=== PATIENT | female | born 1985 | race Caucasian/White ===

== ENCOUNTER 2016-09-29 13:47 | Inpatient (IN) | payer BC ==
[2016-09-29 17:44] LABS: Hematocrit 36 % (35-47); Hemoglobin 11.9 g/dl (12.0-16.0); Mean Corpuscular HGB Conc 33 g/dl (31-36); Mean Corpuscular Hemoglobin 27 pg (27-31); Mean Corpuscular Volume 83 fL (80-97); Mean Platelet Volume 8 um3 (7.4-10.4); Red Blood Count 4.38 10^6/ul (4.0-5.4); Red Cell Distribution Width 15 % (10.5-15); White Blood Count 21.6 10^3/ul (3.5-10.8)
[2016-09-29] MEDS ORDERED: OBEPIDURAL* 250 ML ONE (17:46)
[2016-09-29] MEDS ORDERED: fentaNYL* 50 MCG/ML 2 ML VIAL (100 MCG VIAL) ONE (18:30)
[2016-09-29] MEDS ORDERED: fentaNYL* 50 MCG/ML 2 ML VIAL (100 MCG VIAL) IV ONE (18:31)
[2016-09-29] MEDS ORDERED: Phenylephrine IV* 40 MCG/ML 10 ML SYRINGE IV PUSH PRN ×2 (19:11)
[2016-09-29] MEDS ORDERED: Sodium Citrate/Citric Acid* 15 ML UDC PO PRN (19:11)
[2016-09-29] MEDS ORDERED: EPHEDrine (Pressors)* 50 MG/ML VIAL IV PUSH PRN ×2 (19:11)
[2016-09-29] MEDS ORDERED: Famotidine TAB* 20 MG PO PRN (19:11)
[2016-09-29] MEDS ORDERED: OBEPIDURAL* 250 ML EPIDURAL SCH (20:00)
[2016-09-29] MEDS ORDERED: Oxytocin in LR* 20 UNITS/1,000 ML BAG IVPB ONE (21:01)
[2016-09-29] MEDS ORDERED: Oxytocin in LR* 20 UNITS/1,000 ML BAG IVPB SCH (22:00)
[2016-09-29] MEDS ORDERED: ceFOXitin 2 GM IVPREMIX* 2 GM/50 ML BAG ONE (23:44)
[2016-09-30] MEDS ORDERED: fentaNYL* 50 MCG/ML 2 ML VIAL (100 MCG VIAL) ONE (00:26)
[2016-09-30] MEDS ORDERED: OXYTOCIN* 10 UNITS/ML 1 ML VIAL ONE (00:56)
[2016-09-30] MEDS ORDERED: Sodium Bicarbonate 8.4% IV* 50 ML VIAL ONE (00:56)
[2016-09-30] MEDS ORDERED: Lidocaine 2% EPI 1:200000 MPF* 20 ML VIAL ONE (00:56)
[2016-09-30] MEDS ORDERED: Carboprost Tromethamine* 250 MCG INJ ONE (01:00)
[2016-09-30] MEDS ORDERED: Morphine PF AMP (0.5MG/ML)* 5 MG/10 ML AMP ONE (01:04)
[2016-09-30] MEDS ORDERED: Acetaminophen TAB* 325 MG PO PRN (01:09)
[2016-09-30] MEDS ORDERED: Naloxone* 0.4 MG/ML 1 ML VIAL IV PRN (01:09)
[2016-09-30] MEDS ORDERED: oxyCODONE/Acetamin 5/325 MG* TAB PO PRN ×3 (01:09→17:09)
[2016-09-30] MEDS ORDERED: Nalbuphine* 20 MG/ML 1 ML VIAL IV PRN (01:09)
[2016-09-30] MEDS ORDERED: DiMENhydriNATE IV* 50 MG/ML VIAL IV PUSH PRN (01:09)
[2016-09-30] MEDS ORDERED: Ondansetron INJ* 2 MG/ML VIAL ONE (01:40)
[2016-09-30] MEDS ORDERED: Zolpidem TAB* 5 MG PO PRN (01:41)
[2016-09-30] MEDS ORDERED: Witch Hazel PAD* JAR TOPICAL PRN (01:41)
[2016-09-30] MEDS ORDERED: Glycerin ADULT SUPP PR PRN (01:41)
[2016-09-30] MEDS ORDERED: Carboprost Tromethamine* 250 MCG INJ IM ONE (01:41)
[2016-09-30] MEDS ORDERED: Dibucaine 1% 28.35 GM TUBE PR PRN (01:41)
[2016-09-30] MEDS ORDERED: Oxytocin in LR* 20 UNITS/1,000 ML BAG IVPB SCH (02:00)
--- NOTE | 2016-09-30 03:41 | OP ---
OPERATIVE REPORT: DATE OF OPERATION: 09/30/16 DATE OF : 85 SURGEON: Gonsalo Santiago MD [employer] PRINCIPAL: Lesia Matute CM ANESTHESIA: Epidural. PRE-OP DIAGNOSIS: Arrest of dilation. POST-OP DIAGNOSES: Arrest of dilation plus macrosomia and omental adhesions. OPERATIVE PROCEDURE: Low-transverse section and lysis of adhesions. COMPLICATIONS: None. ESTIMATED BLOOD LOSS: 600 cc. FINDING: This is a 31-year-old gravid 1 who presented in labor. She progressed a 5 cm and then arrested despite epidural and Pitocin augmentation. At the time of , she had a viable male, Apgars were 9 and 9, weight was 9 pounds and 8 ounces. She had omental adhesions to the anterior peritoneum. Normal-appearing fallopian tubes and ovaries. PROCEDURE: The patient identified, procedure identified as a low transverse section. The patient was taken to the operating room, prepped and draped in the usual fashion in the left lateral recumbent position under epidural anesthesia. A Pfannenstiel incision was made through the abdomen and carried down through fat, fascia, and peritoneum. A transverse incision was made in the lower uterine segment and extended laterally using the blunt dissection. The above was attempted to deliver through the incision because there was resistance. The right side of the rectus muscle was incised and the skin incision was extended somewhat approximately 3 cm. At this point the baby delivered with ease. Cord was doubly clamped and cut. The infant was handed to the waiting pattern setter. Cord blood was obtained. Placenta delivered spontaneously. Uterus was wiped out with a wet lap sponge. Because of the uterine anatomy, 250 mcg of carboprost was given IM along with Pitocin. The uterine incision was then closed using 0 Polysorb in a running fashion. A second layer was used to imbricate the first layer. Good hemostasis was verified. The uterus was placed back in the abdominal cavity. The omental adhesion was lysed using the Bovie along the peritoneal border and the distal ends were inspected for hemostasis. Good hemostasis was verified. The uterus was placed back in the abdominal cavity. Good hemostasis was again verified. The gutters were wiped out with the wet lap sponge. The peritoneum was then closed using 3-0 Polysorb in a running fashion. Good hemostasis achieved in the subrectus layers. The rectus muscle was reapproximated using the 3-0 Polysorb in a [id number] fashion. The fascia was then closed using 0 Polysorb in a running fashion. Good hemostasis was achieved in the subcu. Subcu was not very deep and hence the skin was closed with 4-0 Monocryl in a subcuticular fashion. All sponge and instrument counts were correct. The patient was returned to the recovery room in stable condition. [id number]/[facility] #: [id number] [facility]ITAL[facility]
[2016-09-30] MEDS: Ibuprofen TAB* 600 MG PO PRN ×5 (04:05→23:48)
[2016-09-30] MEDS: Simethicone TAB* 80 MG TAB.CHEW PO SCH ×4 (09:19→20:33)
[2016-09-30] MEDS: Docusate CAP* 100 MG PO SCH ×3 (09:19→20:33)
[2016-09-30] MEDS: Acetaminophen TAB* 325 MG PO PRN (20:33)
[2016-10-01] MEDS: Acetaminophen TAB* 325 MG PO PRN ×3 (04:18→18:43)
[2016-10-01 07:10] LABS: Hematocrit 27 % (35-47); Hemoglobin 8.8 g/dl (12.0-16.0); Mean Corpuscular HGB Conc 33 g/dl (31-36); Mean Corpuscular Hemoglobin 28 pg (27-31); Mean Corpuscular Volume 84 fL (80-97); Mean Platelet Volume 8 um3 (7.4-10.4); Red Blood Count 3.19 10^6/ul (4.0-5.4); Red Cell Distribution Width 15 % (10.5-15); White Blood Count 14.9 10^3/ul (3.5-10.8)
[2016-10-01] MEDS: Docusate CAP* 100 MG PO SCH ×3 (08:55→21:44)
[2016-10-01] MEDS: Ibuprofen TAB* 600 MG PO PRN ×3 (08:56→21:42)
[2016-10-01] MEDS: Ferrous Gluconate TAB* 324 MG TAB PO SCH ×2 (08:56→21:44)
[2016-10-01] MEDS: Simethicone TAB* 80 MG TAB.CHEW PO SCH ×4 (08:56→21:41)
[2016-10-02] MEDS: Acetaminophen TAB* 325 MG PO PRN ×2 (02:42→08:47)
[2016-10-02] MEDS: Ibuprofen TAB* 600 MG PO PRN (04:34)
[2016-10-02 07:57] VITALS: BP 112/87
[2016-10-02] MEDS: Ferrous Gluconate TAB* 324 MG TAB PO SCH (08:44)
[2016-10-02] MEDS: Docusate CAP* 100 MG PO SCH (08:44)
[2016-10-02] MEDS: Simethicone TAB* 80 MG TAB.CHEW PO SCH (08:44)
== END 2016-10-02 13:00 | disposition home or self-care (01) | DRG 540 ==
LOC: MCHOBOUT 13:47 → MCHOB 14:18
PROVIDERS: ADMIT Midwife; ATTEND Obstetrics & Gynecology
PROC: 10907ZC Drainage of Amniotic Fluid, Therapeutic from Products of Conception, Via Natural or Artificial Opening (ICD-10-PCS; 2016-09-30)
PROC: 0JN Subcutaneous Tissue and Fascia, Release (ICD-10-PCS; 2016-09-30)
PROC: 10D00Z1 Extraction of Products of Conception, Low, Open Approach (ICD-10-PCS; principal; 2016-09-30 00:26)
DX: O62.0 Primary inadequate contractions (principal); D64.9 Anemia, unspecified; O66.2 Obstructed labor due to unusually large fetus; O99.89 Other specified diseases and conditions complicating pregnancy, childbirth and the puerperium; O48.0 Post-term pregnancy; O90.81 Anemia of the puerperium; N73.6 Female pelvic peritoneal adhesions (postinfective); Z3A.40 40 weeks gestation of pregnancy; Z37.0 Single live birth
CPT/HCPCS: 36415; 85025; 85027; 86850; 86900; 86901; A9270-GY; J0694; J2405; J2590; J3010

== ENCOUNTER 2017-06-11 19:05 | Emergency (ER) | payer BC ==
[2017-06-11 19:27] VITALS: BP 128/70
[2017-06-11] MEDS ORDERED: NS 0.9% 1000 ML* 1,000 ML IV ONE (19:53)
--- NOTE | 2017-06-14 20:45 | UC ---
Abdominal Pain Female HPI - HPI Summary HPI Summary: 31 YEAR OLD FEMALE WITH A HISTORY OF A RENAL STONE PRESENTS WITH SEVERE ABDOMINAL PAIN I WILL SEND HER TO THE ER. - History of Current Complaint Chief Complaint: UCGU Stated Complaint: ABD PAIN Time Seen by Provider: 06/11/17 19:30 Hx Obtained From: Patient Hx Last Menstrual Period: 05/21 Onset/Duration: Sudden Onset Pain Scale Used: 0-10 Numeric - 10 Location: Diffuse, Discrete At: RLQ Radiates to: Back Allergies/Adverse Reactions: Allergies Allergy/AdvReac Type Severity Reaction Status Date / Time Levofloxacin [From Levaquin] AdvReac Vomiting Verified 06/11/17 19:27 PMH/Surg Hx/FS Hx/Imm Hx - Surgical History Surgical History: Yes Surgery Procedure, Year, and Place: 2002 & 2009 left ureteroscopy, stent insertion, [facility]. [facility] - Social History Alcohol Use: Weekly Alcohol Amount: 2 beers per week Substance Use Type: None Smoking Status (MU): Never Smoked Tobacco Have You Smoked in the Last Year: No - Immunization History Most Recent Influenza Vaccination: 06/2016 Most Recent Tetanus Shot: 06/2016 Most Recent Pneumonia Vaccination: never Review of Systems Constitutional: Negative Skin: Negative Eyes: Negative ENT: Negative Respiratory: Negative Cardiovascular: Negative Gastrointestinal: Abdominal Pain, Nausea Genitourinary: Negative Motor: Negative Neurovascular: Negative Musculoskeletal: Negative Neurological: Negative Psychological: Negative All Other Systems Reviewed And Are Negative: Yes Physical Exam Triage Information Reviewed: Yes Vital Signs: Initial Vital Signs Temp 36.6 C 06/11/17 19:22 Pulse 110 06/11/17 19:22 Resp 22 06/11/17 19:22 BP 128/70 06/11/17 19:22 Pulse Ox 96 06/11/17 19:22 Vital Signs Reviewed: Yes Eye Exam: Normal ENT Exam: Normal Dental Exam: Normal Neck exam: Normal Neck: Positive: 1 Respiratory Exam: Normal Cardiovascular Exam: Normal Abdomen Description: Positive: CVA Tenderness (R), Guarding Musculoskeletal Exam: Normal Neurological Exam: Normal Psychological Exam: Normal Skin Exam: Normal Abd Pain Female Course/Dx - Differential Dx/Diagnosis Provider Diagnoses: SEVERE RIGHT FLANK PAIN. SEVERE RLQ PAIN Discharge - Discharge Plan Condition: Guarded Disposition: [facility] Referrals: Christophe Ascencio MD [Primary Care Provider] -
== END 2017-06-11 19:55 | disposition short-term general hospital (02) ==
LOC: UCEAST 19:05
DX: R10.31 Right lower quadrant pain (principal); M54.5 Low back pain; R11.0 Nausea; Z87.442 Personal history of urinary calculi; Z88.1 Allergy status to other antibiotic agents
CPT/HCPCS: 99213; G0463

== ENCOUNTER 2017-06-11 20:12 | Emergency (ER) | payer BC ==
[2017-06-11] MEDS ORDERED: Ketorolac INJ* 30 MG/ML 1 ML VIAL IV PUSH ONE (20:48)
[2017-06-11] MEDS ORDERED: Ondansetron INJ* 2 MG/ML VIAL IV ONE (20:48)
[2017-06-11 21:43] LABS: Hematocrit 42 % (35-47); Hemoglobin 13.7 g/dl (12.0-16.0); Mean Corpuscular HGB Conc 33 g/dl (31-36); Mean Corpuscular Hemoglobin 28 pg (27-31); Mean Corpuscular Volume 83 fL (80-97); Mean Platelet Volume 8 um3 (7.4-10.4); Red Blood Count 4.98 10^6/ul (4.0-5.4); Red Cell Distribution Width 14 % (10.5-15)
[2017-06-11 21:59] LABS: ALT 11 U/L (7-52); AST 13 U/L (13-39); Albumin 4.2 g/dL (3.2-5.2); Alkaline Phosphatase 68 U/L (34-104); Anion Gap 11 mmol/L (2-11); BUN/Creatinine Ratio 22.6 (8-20); Blood Urea Nitrogen 14 mg/dL (6-24); CO2 Carbon Dioxide 19 mmol/L (22-32); Calcium 8.8 mg/dL (8.6-10.3); Chloride 106 mmol/L (101-111); EGFR African American 144.4 (>60); EGFR Non-African American 112.3 (>60); Globulin 3.1 g/dL (2-4); Glucose 128 mg/dL (70-100); Potassium 3.9 mmol/L (3.5-5.0); Sodium 136 mmol/L (133-145); Total Protein 7.3 g/dL (6.4-8.9)
[2017-06-11 22:20] LABS: Lipase < 10 U/L (11.0-82.0)
--- NOTE | 2017-06-11 23:16 | ED ---
GI/ HPI - HPI Summary HPI Summary: 31F presents with right sided flank and abdominal pain for today. Has history of kidney stones but states that this feels a little different as pain is more intense and more into abdomen. is being followed up by dr barrios for kidney stones. admits to nausea and vomiting. denies any fever. denies any dysuria or hematuria. denies any diarrhea or constipation. no abnormal vaginal discharge. denies any denies any previous abdominal surgeries. is schedule for lithotripsy in jul. - History of Current Complaint Chief Complaint: EDAbdPain Time Seen by Provider: 06/11/17 20:41 Stated Complaint: ABD PAIN Hx Last Menstrual Period: 05/21 Pain Intensity: 8 - Allergy/Home Medications Allergies/Adverse Reactions: Allergies Allergy/AdvReac Type Severity Reaction Status Date / Time Levofloxacin [From Levaquin] AdvReac Vomiting Verified 06/11/17 19:27 PMH/Surg Hx/FS Hx/Imm Hx Endocrine/Hematology History: Denies: Hx Diabetes, Hx Thyroid Disease Cardiovascular History: Denies: Hx Hypertension Respiratory History: Denies: Hx Asthma, Hx Chronic Obstructive Pulmonary Disease (COPD) GI History: Denies: Hx Ulcer History: Reports: Hx Kidney Stones - hx of x3-BILAT, Other Problems/ Disorders - hx of stones Sensory History: Denies: Hx Contacts or Glasses, Hx Hearing Aid Opthamlomology History: Denies: Hx Contacts or Glasses - Surgical History Surgery Procedure, Year, and Place: 2002 & 2009 [place]teroscopy, [place] [facility] [facility] [place] Reactions: No Infectious Disease History: No Infectious Disease History: Denies: Hx Clostridium Difficile, Hx Hepatitis, Hx Human Immunodeficiency Virus (HIV), Hx of Known/Suspected MRSA, Hx Shingles, Hx Tuberculosis, Hx Known/ Suspected VRE, Hx Known/Suspected VRSA, History Other Infectious Disease, Traveled Outside the [place] in Last 30 Days - Family History Known Family History: Positive: Renal Disease - Social History Alcohol Use: Weekly Alcohol Amount: 2 beers per week Substance Use Type: Reports: None Smoking Status (MU): Never Smoked Tobacco Have You Smoked in the Last Year: No Review of Systems Negative: Fever Negative: Chest Pain Negative: Shortness Of Breath Positive: Abdominal Pain, Vomiting, Nausea. Negative: Diarrhea Positive: flank pain. Negative: dysuria All Other Systems Reviewed And Are Negative: Yes Physical Exam Triage Information Reviewed: Yes Vital Signs On Initial Exam: Initial Vitals Temp Pulse Resp BP Pulse Ox 97.8 F 91 17 180/136 97 06/11/17 20:16 06/11/17 20:16 06/11/17 20:16 06/11/17 20:16 06/11/17 20:16 Vital Signs Reviewed: Yes Appearance: Positive: Pain Distress Skin: Positive: Warm, Dry Head/Face: Positive: Normal Head/Face Inspection Eyes: Positive: Normal, EOMI, SARTHAK, Conjunctiva Clear ENT: Positive: Normal ENT inspection, Pharynx normal, TMs normal Respiratory/Lung Sounds: Positive: Clear to Auscultation, Breath Sounds Present Cardiovascular: Positive: Normal, RRR Abdomen Description: Positive: Bruit, CVA Tenderness (R), Other: - moderate tenderness RLQ, no rebound, neg rosvings Bowel Sounds: Positive: Present - [place]ay Coma Scale Coma Scale Total: 15 Diagnostics - Vital Signs Vital Signs Temp Pulse Resp BP Pulse Ox 06/11/17 20:16 97.8 F 91 17 180/136 97 - Laboratory Lab Results: Lab Results 06/11/17 06/11/17 Range/Units 21:33 21:33 WBC 11.0 H (3.5-10.8) 10^3/ul RBC 4.98 (4.0-5.4) 10^6/ul Hgb 13.7 (12.0-16.0) g/dl Hct 42 (35-47) % MCV 83 (80-97) fL MCH 28 (27-31) pg MCHC 33 (31-36) g/dl RDW 14 (10.5-15) % Plt Count 281 (150-450) 10^3/ul MPV 8 (7.4-10.4) um3 Neut % (Auto) 94.1 H (38-83) % Lymph % (Auto) 2.9 L (25-47) % [place] % (Auto) 2.7 (1-9) % Eos % (Auto) 0.1 (0-6) % Baso % (Auto) 0.2 (0-2) % Absolute Neuts (auto) 10.4 H (1.5-7.7) 10^3/ul Absolute Lymphs (auto) 0.3 L (1.0-4.8) 10^3/ul Absolute Monos (auto) 0.3 (0-0.8) 10^3/ul Absolute Eos (auto) 0 (0-0.6) 10^3/ul Absolute Basos (auto) 0 (0-0.2) 10^3/ul Absolute Nucleated RBC 0 10^3/ul Nucleated RBC % 0 Sodium 136 (133-145) mmol/L Potassium 3.9 (3.5-5.0) mmol/L Chloride 106 (101-111) mmol/L Carbon Dioxide 19 L (22-32) mmol/L Anion Gap 11 (2-11) mmol/L BUN 14 (6-24) mg/dL Creatinine 0.62 (0.51-0.95) mg/dL Est GFR ( Amer) 144.4 (>60) Est GFR (Non-Af Amer) 112.3 (>60) BUN/Creatinine Ratio 22.6 H (8-20) Glucose 128 H (70-100) mg/dL Calcium 8.8 (8.6-10.3) mg/dL Total Bilirubin 0.70 (0.2-1.0) mg/dL AST 13 (13-39) U/L ALT 11 (7-52) U/L Alkaline Phosphatase 68 (34-104) U/L C-React Prot High Sens 18.46 mg/L Total Protein 7.3 (6.4-8.9) g/dL Albumin 4.2 (3.2-5.2) g/dL Globulin 3.1 (2-4) g/dL Albumin/Globulin Ratio 1.4 (1-3) Lipase < 10 L (11.0-82.0) U/L Beta HCG, Quant < 0.60 mIU/mL Result Diagrams: 06/11/17 21:33 06/11/17 21:33 Lab Statement: Any lab studies that have been ordered have been reviewed, and results considered in the medical decision making process. - CT abd CT Interpretation: Positive (See Comments) - 2mm bladder stone near left urterovesciular junction, appendix appears grossly normal. CT Interpretation Completed By: Radiologist GIGJaskaran Course/Dx - Course Course Of Treatment: 31F presents with right sided flank and abdominal pain for today. Has history of kidney stones but states that this feels a little different as pain is more intense and more into abdomen. is being followed up by dr barrios for kidney stones. admits to nausea and vomiting. denies any fever. denies any dysuria or hematuria. denies any diarrhea or constipation. no abnormal vaginal discharge. denies any denies any previous abdominal surgeries. on exam CVA tenderness right, tender in RLQ more towards center, neg rovsings. CT abdomen shows stone 2mm stone at left UVJ. this is not were pain really is but wbc only [address] without did not show appendicitis. will treat as just stone with flomax and zofran. patient has percocet. patient understands and agrees with plan. - Diagnoses Differential Diagnoses - Female: Appendicitis, Urinary Tract Infection, Ureteral Calculi Provider Diagnoses: Kidney stone Discharge - Discharge Plan Condition: Good Disposition: HOME Prescriptions: Ondansetron ODT TAB* [Zofran 4 MG Odt TAB*] 4 mg PO Q6H PRN #20 tab.odt PRN Reason: Nausea Tamsulosin CAP* [Flomax CAP*] 0.4 mg PO DAILY #10 cap Patient Education Materials: Kidney Stones (ED) Forms: *Work Release Referrals: Christophe Ascencio MD [Primary Care Provider] - Devin Barrios MD [Medical Doctor] - Additional Instructions: Take ibuprofen every 6 hours and narcotic as needed every 6 hours Take Zofran every 6 hours for nausea as needed Take Flomax daily starting tomorrow, first dose given in ED until stone expelled , make sure stand up slowly Follow up with urology Strain urine until collect stone Return to ED if unable to manage pain at home, develop fever, or any new or worsening symptoms
[2017-06-11] MEDS ORDERED: HYDROmorphone INJ* 1 MG/ML CARPUJECT SYRINGE IV SLOW PU ONE (23:19)
[2017-06-11 23:31] LABS: Urine Bacteria Absent (Absent)
[2017-06-11 23:37] LABS: Urine Bilirubin Negative (Negative); Urine Glucose Negative (Negative); Urine Nitrite Negative (Negative)
[2017-06-12] MEDS ORDERED: Ondansetron ODT TAB* 4 MG PO ONE (00:34)
[2017-06-12] MEDS ORDERED: Tamsulosin CAP* 0.4 MG PO ONE (00:35)
[2017-06-12 00:44] VITALS: BP 124/69
--- NOTE | 2017-06-12 07:42 | RAD ---
CLINICAL HISTORY: Right flank pain, right lower quadrant pain COMPARISON: None TECHNIQUE: Multiple contiguous axial CT scans were obtained of the abdomen and pelvis, without intravenous contrast enhancement. Coronal and sagittal multiplanar reformations are submitted for review. Oral contrast was not administered. FINDINGS: The study is limited by the lack of intravenous contrast. This limits evaluation of the solid organs and vasculature. LUNG BASES: The lung bases are clear. LIVER: The liver is normal in shape, size, contour, and attenuation. BILE DUCTS: There is no intrahepatic or extrahepatic biliary dilatation. GALLBLADDER: The gallbladder is normal, without pericholecystic inflammatory change. PANCREAS: The pancreas is normal, without mass or ductal dilatation. SPLEEN: Normal in size and appearance. UPPER GI TRACT: Evaluation of the gastrointestinal tract is limited by incomplete gastric distention. The upper GI tract is unremarkable. SMALL BOWEL AND MESENTERY: The small bowel is normal in contour, course, and caliber. There is no obstruction or dilatation. COLON: The colon is normal in contour, course, caliber. There is no pericolonic inflammatory change. There is a tubular, vermiform, hollow viscus that is blind ending, and originates from the cecum, consistent with a normal appendix. There is no periappendiceal inflammatory change. This is best seen on images 108-120. ADRENALS: Normal bilaterally. KIDNEYS: There are bilateral renal calyceal stones, measuring up to 0.6 cm on the right. There is a 0.2 cm left UVJ stone. There is no hydronephrosis. BLADDER: As noted above, there is a 0.2 cm left UVJ stone. PELVIC ORGANS: The uterus and adnexa are grossly normal for technique. AORTA: The aorta is normal. IVC: Unremarkable LYMPH NODES: There is no lymphadenopathy by size criteria. ABDOMINAL WALL: There is a small fat-containing umbilical hernia. BONES AND SOFT TISSUES: Unremarkable OTHER: None IMPRESSION: 1. BILATERAL NEPHROLITHIASIS, INCLUDING A 0.2 CM LEFT UVJ STONE. THERE IS NO HYDRONEPHROSIS. 2. NORMAL APPENDIX.
== END 2017-06-12 01:23 | disposition home or self-care (01) ==
LOC: ED 20:12
DX: N20.0 Calculus of kidney (principal); R11.2 Nausea with vomiting, unspecified; R10.84 Generalized abdominal pain
CPT/HCPCS: 36415; 74176; 80053; 81003; 81015; 83690; 84702; 85025; 86141; 96374; 96375; 99283; A9270-GY; J1170; J1885; J2405

== ENCOUNTER 2018-10-06 05:54 | Inpatient (IN) | payer BC ==
[2018-10-06] MEDS ORDERED: Lidocaine 1%* 5 ML VIAL ONE ×2 (06:02→07:57)
[2018-10-06] MEDS ORDERED: ceFOXitin 2 GM IVPREMIX* 2 GM/50 ML BAG ONE (06:03)
[2018-10-06] MEDS ORDERED: Morphine PF AMP (0.5MG/ML)* 5 MG/10 ML AMP ONE (07:54)
[2018-10-06] MEDS ORDERED: Sodium Citrate/Citric Acid* 15 ML UDC ONE (07:59)
[2018-10-06] MEDS ORDERED: Naloxone* 0.4 MG/ML 1 ML VIAL IV PRN ×2 (08:42→08:43)
[2018-10-06] MEDS ORDERED: fentaNYL* 50 MCG/ML 2 ML VIAL (100 MCG VIAL) IV PRN (08:42)
[2018-10-06] MEDS ORDERED: Ondansetron INJ* 2 MG/ML VIAL IV PRN ×2 (08:42→08:43)
[2018-10-06] MEDS ORDERED: oxyCODONE/Acetamin 5/325 MG* TAB PO PRN (08:43)
[2018-10-06] MEDS ORDERED: DiMENhydriNATE IV* 50 MG/ML VIAL IV PUSH PRN (08:43)
[2018-10-06] MEDS ORDERED: diPHENhydraMINE IV* 50 MG/ML 1 ml VIAL (BENADRYL) IV PRN (08:43)
[2018-10-06] MEDS ORDERED: Scopolamine 1.5 mg* PATCH TRANSDERM PRN (08:43)
[2018-10-06] MEDS ORDERED: OXYTOCIN* 10 UNITS/ML 1 ML VIAL ONE (08:56)
[2018-10-06] MEDS ORDERED: Ketorolac INJ* 30 MG/ML 1 ML VIAL ONE (08:56)
[2018-10-06] MEDS ORDERED: EPHEDrine (Pressors)* 50 MG/ML VIAL ONE (08:56)
[2018-10-06] MEDS ORDERED: Phenylephrine INJ* 10 MG/ML 1 ML VIAL (10 MG) ONE (09:22)
[2018-10-06] MEDS ORDERED: Glycerin ADULT SUPP PR PRN (12:18)
[2018-10-06] MEDS ORDERED: Witch Hazel PAD* JAR TOPICAL PRN (12:18)
[2018-10-06] MEDS ORDERED: Ibuprofen TAB* 600 MG PO PRN (12:18)
[2018-10-06] MEDS ORDERED: Acetaminophen TAB* 325 MG PO PRN (12:18)
[2018-10-06] MEDS ORDERED: Dibucaine 1% 28.35 GM TUBE PR PRN (12:18)
[2018-10-06] MEDS ORDERED: Lactated Ringers 1000 ML Bag* 1,000 ML IV SCH (13:00)
[2018-10-06] MEDS ORDERED: Oxytocin in LR* 20 UNITS/1,000 ML BAG IVPB SCH (13:00)
[2018-10-06] MEDS: Docusate CAP* 100 MG PO SCH ×2 (15:38→20:01)
[2018-10-06] MEDS: Simethicone TAB* 80 MG TAB.CHEW PO SCH ×3 (16:26→20:01)
[2018-10-06] MEDS: Ketorolac INJ* 30 MG/ML 1 ML VIAL IV PRN ×2 (17:13→23:30)
--- NOTE | 2018-10-06 20:39 | OP ---
DATE OF OPERATION: 10/06/18 - ROOM #105 DATE OF : 85 SURGEON: Dr. Yaima Livingston. MD UROLOGIST: Anel Gold CNM and Rambo Gunderson CNM. ANESTHESIOLOGIST: Dr. Rodarte. ANESTHESIA: Spinal. PRE-OP DIAGNOSES: Intrauterine , 39-2/7th weeks, desires repeat C- section, desires permanent sterility. POST-OP DIAGNOSES: Intrauterine , 39-2/7th weeks, desires repeat C- section, desires permanent sterility, delivered. OPERATIVE PROCEDURE: Repeat low transverse section with vacuum extraction, bilateral tubal ligation with bilateral fimbriectomy. ESTIMATED BLOOD LOSS: 600. URINE OUTPUT: 400 cc of clear yellow urine. FLUIDS: 2500 cc of crystalloid. FINDINGS: Revealed a vertex male , Apgars 8 at 1 minute, 9 at 5 minutes. Weight was 9 pounds 0 ounces. Head 14-1/2 inches. No nuchal cord, no meconium. Uterus normal appearance. Tubes and ovaries with normal appearance. Placenta manually extracted, 3-vessel cord intact. No evidence of retained membranes or placental tissue in the uterine cavity. COMPLICATIONS: None apparent. DISPOSITION: Stable to recovery room. DESCRIPTION OF PROCEDURE: The patient was placed in the dorsal lithotomy position. The abdomen was prepped and draped in a sterile standard fashion. After identifying adequate level of anesthesia and confirming universal protocol for correct procedure, patient, and position, an incision was made through prior incision with scalpel. This was carried down through the fascia. The fascia was scored in the midline and extended laterally and superiorly using curved Montgomery scissors. The fascia was from the rectus muscle superiorly and inferiorly with blunt and sharp dissection. The peritoneum was then entered bluntly. The patient's incision was extended bluntly. Uterine wall was visualized. Anterior lower uterine segment was clamped with Allis, incised with a scalpel down to membranes. The uterine incision was extended laterally and superiorly using bandage scissors. Attempt was made for delivery of head. Vacuum was applied x4. Bandage scissors was used to extend the rectus muscle incision. Head delivered with vacuum. No nuchal cord was appreciated. No meconium. Anterior, posterior shoulder delivered. Cord was milked and then clamped after 60 seconds and cord was cut. It was handed off to waiting warehouse record clerk. Baby was vigorous at the field and crying. Appropriate cord blood was obtained. Placenta was then manually extracted, noted to be 3- vessel cord, intact. Uterus was exteriorized. Normal tubes and ovaries were appreciated. Uterine cavity was explored, noted to be free of any membranes or placental tissue. Uterine incision itself was reapproximated using 0 Vicryl x2 , first layer running locked, second layer running imbricated. At that point, attention was then focused on tubal ligation. The patient confirmed she did not want to maintain her fertility. The Aleisha was placed across the left tube, 0 Vicryl suture was placed - a free tie, and then second ligature suture used in a heaneyed fashion 2-0 Vicryl for complete occlusion. The portion of the fimbria and lower one-third of the tube was then excised. Hemostasis was noted. This process was repeated on the right. Hemostasis was noted on the right. Uterus was returned intra-abdominally, colic gutters were lavaged. Fallopian tube excisional site was revisualized and noted to be hemostatic on both the right and the left. The peritoneum was clamped with Kellys, hysterotomy site was noted to be hemostatic, and the peritoneum was then reapproximated using 3-0 Vicryl in a running fashion. The subfascial area was visualized, a lavage was performed, hemostasis was assured with Bovie coagulation. The fascia was then reapproximated using 0 Vicryl x2 in a running fashion. Subcu was lavaged, hemostasis assured, and the skin was reapproximated using 4-0 Monocryl in a subcuticular fashion. Mastisol and Steri were applied. All sponge, instrument, and blade counts were correct throughout the case. The patient tolerated the procedure well and went to recovery room in stable condition. [id number]/[facility] #: [id number] [facility]ENTERAn[facility]
[2018-10-07] MEDS ORDERED: oxyCODONE/Acetamin 5/325 MG* TAB PO PRN ×2 (00:10)
[2018-10-07] MEDS: Acetaminophen TAB* 325 MG PO PRN ×5 (04:35→21:26)
[2018-10-07] MEDS: Ketorolac INJ* 30 MG/ML 1 ML VIAL IV PRN (05:19)
[2018-10-07 06:09] LABS: ABS Basophils 0.1 10^3/ul (0-0.2); ABS Eosinophils 0.2 10^3/ul (0-0.6); ABS Lymphocytes 1.5 10^3/ul (1.0-4.8); ABS Monocytes 0.8 10^3/ul (0-0.8); ABS Neutrophils 9.7 10^3/ul (1.5-7.7); ABS Nucleated RBC 0 10^3/ul; Eosinophil % 1.3 %; Hematocrit 31 % (35-47); Hemoglobin 10.1 g/dl (12.0-16.0); Lymphocyte % 12.3 %; Mean Corpuscular HGB Conc 33 g/dl (31-36); Mean Corpuscular Hemoglobin 28 pg (27-31); Mean Corpuscular Volume 84 fL (80-97); Mean Platelet Volume 7.8 fL (7.4-10.4); Nucleated Red Blood Cells % 0; Platelet Count 236 10^3/ul (150-450); Red Blood Count 3.66 10^6/ul (4.00-5.40); Red Cell Distribution Width 14 % (10.5-15); White Blood Count 12.3 10^3/ul (3.5-10.8)
[2018-10-07] MEDS: Docusate CAP* 100 MG PO SCH ×3 (08:36→19:43)
[2018-10-07] MEDS: Simethicone TAB* 80 MG TAB.CHEW PO SCH ×4 (08:37→19:44)
[2018-10-07] MEDS: Prenatal Vitamin TAB PO SCH (08:37)
[2018-10-07] MEDS: Ferrous Gluconate TAB* 324 MG TAB PO SCH (09:38)
--- NOTE | 2018-10-07 10:07 | PN ---
Progress Note - Progress Note Date of Service: 10/07/18 SOAP: Subjective: [Patient is post section and tubal ligation day 1. She is in bed comfortable, tolerated regular diet, denies fever/chills, chest pain, shortness of breath or nausea/vomiting. Pain is tolerable with PO meds.] Objective: [ Vital Signs Temp Pulse Resp BP Pulse Ox 98.0 F 77 18 99/64 98 10/07/18 07:40 10/07/18 07:40 10/07/18 09:33 10/07/18 07:40 10/07/18 04:25 Laboratory Last Values WBC 12.3 10^3/ul (3.5-10.8) H 10/07/18 05:51 RBC 3.66 10^6/ul (4.00-5.40) L 10/07/18 05:51 Hgb 10.1 g/dl (12.0-16.0) L 10/07/18 05:51 Hct 31 % (35-47) L 10/07/18 05:51 MCV 84 fL (80-97) 10/07/18 05:51 MCH 28 pg (27-31) 10/07/18 05:51 MCHC 33 g/dl (31-36) 10/07/18 05:51 RDW 14 % (10.5-15) 10/07/18 05:51 Plt Count 236 10^3/ul (150-450) 10/07/18 05:51 MPV 7.8 fL (7.4-10.4) 10/07/18 05:51 Neut % (Auto) 79.1 % 10/07/18 05:51 Lymph % (Auto) 12.3 % 10/07/18 05:51 [place] % (Auto) 6.7 % 10/07/18 05:51 Eos % (Auto) 1.3 % 10/07/18 05:51 Baso % (Auto) 0.6 % 10/07/18 05:51 Absolute Neuts (auto) 9.7 10^3/ul (1.5-7.7) H 10/07/18 05:51 Absolute Lymphs (auto) 1.5 10^3/ul (1.0-4.8) 10/07/18 05:51 Absolute Monos (auto) 0.8 10^3/ul (0-0.8) 10/07/18 05:51 Absolute Eos (auto) 0.2 10^3/ul (0-0.6) 10/07/18 05:51 Absolute Basos (auto) 0.1 10^3/ul (0-0.2) 10/07/18 05:51 Absolute Nucleated RBC 0 10^3/ul 10/07/18 05:51 Nucleated RBC % 0 10/07/18 05:51 Lungs CTA b/l, no CVA tenderness b/l CV RRR Abdomen soft, not tender/distended, normal bowel sounds. Uterus not tender, firm, below umbilicus. Incision pad clean, dry and intact. LE not tender b/l] Assessment: [Normal post op day 1 section/tubal ligation recovery.] Plan: [Continue current care, OOB and ambulate.]
[2018-10-07] MEDS: Ibuprofen TAB* 600 MG PO PRN ×3 (11:20→23:51)
[2018-10-08] MEDS: Acetaminophen TAB* 325 MG PO PRN ×3 (01:31→10:23)
[2018-10-08] MEDS: Ibuprofen TAB* 600 MG PO PRN ×2 (05:35→11:25)
[2018-10-08] MEDS: Ferrous Gluconate TAB* 324 MG TAB PO SCH (07:34)
[2018-10-08 08:01] VITALS: BP 110/67
[2018-10-08] MEDS: Prenatal Vitamin TAB PO SCH (10:23)
[2018-10-08] MEDS: Simethicone TAB* 80 MG TAB.CHEW PO SCH (10:24)
[2018-10-08] MEDS: Docusate CAP* 100 MG PO SCH (10:24)
[2018-10-09] MEDS ORDERED: Scopolamine PATCH Remove* 1 NOTE MISC PATCH OFF PRN (08:44)
== END 2018-10-08 17:18 | disposition home or self-care (01) | DRG 540 ==
LOC: MCHOB 05:54
PROVIDERS: ADMIT Obstetrics & Gynecology; ATTEND Obstetrics & Gynecology
PROC: 0UB70ZZ Excision of Bilateral Fallopian Tubes, Open Approach (ICD-10-PCS; 2018-10-06)
PROC: 10D00Z1 Extraction of Products of Conception, Low, Open Approach (ICD-10-PCS; principal; 2018-10-06 07:45)
DX: O34.211 Maternal care for low transverse scar from previous cesarean delivery (principal); Z3A.39 39 weeks gestation of pregnancy; Z37.0 Single live birth
CPT/HCPCS: 36415; 85025; 88302; A9270-GY; J0694; J1885; J2590

== ENCOUNTER → 2019-07-24 07:21 | Day surgery (SDC) | payer BC ==
--- NOTE | 2019-07-17 13:24 | HP ---
CC: Dr. Jesi Wolf * ADMITTING HISTORY AND PHYSICAL: DATE OF ADMISSION: 07/24/19 ADMITTING DIAGNOSIS: Bilateral renal calculi. PLANNED PROCEDURE: Shockwave lithotripsy of right renal calculi. SURGEON: Devin Martinez MD HISTORY OF PRESENT ILLNESS: Christine Samson is a 33-year-old lady with a history of recurrent bilateral renal and ureteral calculi. She was recently evaluated and noted to have increased bilateral renal calculi with the largest calculus in the right kidney measuring about 7 mm on a recent x-ray. She desires treatment of the same and is now being brought in for right renal calculi shockwave lithotripsy. PAST MEDICAL HISTORY: Significant for recurrent renal calculi. PAST SURGICAL HISTORY: Significant for x2 and tubal ligation and shockwave lithotripsy on 2 prior occasions. MEDICATIONS ON ADMISSION: None. ALLERGIES: No known drug allergies (has nausea with LEVAQUIN). REVIEW OF SYSTEMS: She is otherwise in excellent health. There is no history of diabetes mellitus or any other major systemic illness. PHYSICAL EXAMINATION GENERAL: Reveals a pleasant healthy-appearing young lady. VITAL SIGNS: Blood pressure is 120/70, pulse 83 per minute and regular, oxygen saturation 98% on room air, temperature 96.1. LUNGS: Clear bilaterally. CARDIOVASCULAR: Regular rate and rhythm. S1, S2. ABDOMEN: Soft with mild bilateral flank tenderness, right greater than left. IMPRESSION: A 33-year-old lady with bilateral renal calculi and interval increase in the size of renal calculi. Planned procedure is shockwave lithotripsy of right renal calculi. [id number]/[facility] #: [id number] [facility]ENTERAnival
[~2019-07-24 07:21] MED LIST: Buffered Lidocaine 1% SYRIN* 1 ML/SYRINGE INTRADERM ONE; Dexamethasone IV* 4 MG/ML 1 ML (4 MG) IV SLOW PU ONE; Dexamethasone IV* 4 MG/ML 1 ML (4 MG) ONE; DiMENhydriNATE IV* 50 MG/ML VIAL IV PUSH PRN; Famotidine IV* 10 MG/ML 2 ML (20 mg) IV ONE; Famotidine IV* 10 MG/ML 2 ML (20 mg) ONE; Furosemide IV* 10 MG/ML 2 ML VIAL (20 MG) ONE; Lactated Ringers 1000 ML Bag* 1,000 ML IV SCH; Lidocaine 2% PF * 5 ML VIAL ONE; Midazolam* 1 MG/ML 5 ML VIAL (5 MG) ONE; Naloxone* 0.4 MG/ML 1 ML VIAL IV PRN; Ondansetron INJ* 2 MG/ML VIAL IV PRN; Ondansetron INJ* 2 MG/ML VIAL ONE; Propofol* 10 MG/ML 20 ML BTL ONE; cefTRIAXone(*) 2 GM ADDV.VIAL IVPB ONE; fentaNYL* 50 MCG/ML 2 ML VIAL (100 MCG VIAL) IV PRN; fentaNYL* 50 MCG/ML 2 ML VIAL (100 MCG VIAL) ONE; oxyCODONE/Acetamin 5/325 MG* TAB PO PRN
--- NOTE | 2019-07-24 10:33 | OP ---
OPERATIVE REPORT: DATE OF OPERATION: 07/24/19 DATE OF : 85 SURGEON: Devin Martinez MD ANESTHESIOLOGIST: Dr. Lozano. ANESTHESIA: General. PRE-OP DIAGNOSIS: Bilateral renal calculi. POST-OP DIAGNOSIS: Bilateral renal calculi. OPERATIVE PROCEDURE: Shockwave lithotripsy of right renal calculus. COMPLICATIONS: None. POSTOPERATIVE CONDITION: Stable. INDICATIONS: Christine Samson is a 33-year-old lady with history of recurrent bilateral renal calculi. She was recently evaluated and noted to have an approximately 7 mm calculus in the mid pole of the ri ght kidney and would like to have treatment of the same. DESCRIPTION OF PROCEDURE: After induction of general anesthesia, the patient was placed on the litho tripsy table in a supine position. The calculus in the mid pole of the right kidney was identified u sing fluoroscopy. Shockwave lithotripsy was commenced at a rate of 60 shocks per minute. After the initial 300 shocks, there was a pause in lithotripsy for several minutes in an effort to minimize any potential trauma to the kidney. Lithotripsy was then resumed and a total of 1200 shocks were admini stered. Good fragmentation was observed. The patient tolerated the procedure satisfactorily and was transferred back to the recovery area in stable condition. [id number]/[facility] #: [id number]
[2019-07-24 11:41] VITALS: BP 114/59
== END | disposition home or self-care (01) ==
LOC: OR 07:21
PROVIDERS: ATTEND Urology
DX: N20.0 Calculus of kidney (principal); Z87.442 Personal history of urinary calculi; E66.9 Obesity, unspecified
CPT/HCPCS: 74018; J0696; J1100; J1940; J2250; J2405; J2704; J3010

== ENCOUNTER 2021-01-09 08:02 | Observation (INO) ==
[2021-01-09] MEDS ORDERED: NS 0.9% 1000 ml BAG 2,000 ML IV ONE (08:31)
[2021-01-09] MEDS ORDERED: Morphine 4 MG/ML VIAL (1 ml) IV ONE ×2 (08:43→10:15)
[2021-01-09] MEDS ORDERED: Ondansetron 4 mg VIAL 2 MG/ML 2 ml VIAL IV ONE (08:43)
[2021-01-09 09:08] LABS: ABS Basophils 0.1 10^3/ul (0-0.2); ABS Lymphocytes 0.6 10^3/ul (1.0-4.8); ABS Monocytes 1.1 10^3/ul (0-0.8); ABS Neutrophils 18.2 10^3/ul (1.5-7.7); Eosinophil % 0.1 %; Hematocrit 38 % (35-47); Hemoglobin 12.7 g/dL (12.0-16.0); Lymphocyte % 3.2 %; Mean Corpuscular HGB Conc 33 g/dL (31-36); Mean Corpuscular Hemoglobin 28 pg (27-31); Mean Corpuscular Volume 85 fL (80-97); Mean Platelet Volume 7.7 fL (7.4-10.4); Nucleated Red Blood Cells % 0.1; Platelet Count 283 10^3/uL (150-450); Red Blood Count 4.48 10^6 /uL (3.70-4.87); Red Cell Distribution Width 13 % (10-15)
[2021-01-09 09:19] LABS: Albumin 4.3 g/dL (3.2-5.2); Anion Gap 10 mmol/L (2-11); CO2 Carbon Dioxide 20 mmol/L (22-32); Calcium 9.4 mg/dL (8.6-10.3); Chloride 103 mmol/L (101-111); Potassium 3.6 mmol/L (3.5-5.0); Sodium 133 mmol/L (135-145)
[2021-01-09 09:25] LABS: ALT 12 U/L (7-52); AST 14 U/L (13-39); Albumin/Globulin Ratio 1.5 (1-3); Alkaline Phosphatase 61 U/L (34-104); BUN/Creatinine Ratio 18.3 (8-20); Blood Urea Nitrogen 13 mg/dL (6-24); C Reactive Protein 46.37 mg/L (<8.01); EGFR African American 113.4 (>60); EGFR Non-African American 93.7 (>60); Globulin 2.8 g/dL (2-4); Glucose 113 mg/dL (70-100); Total Protein 7.1 g/dL (6.4-8.9)
[2021-01-09 09:31] LABS: HCG Pregnancy < 0.60 mIU/mL
[2021-01-09 10:14] LABS: Urine Appearance Cloudy; Urine Bilirubin Negative (Negative); Urine Blood 2+ (Negative); Urine Color Yellow; Urine Glucose Negative (Negative); Urine Ketones Negative (Negative); Urine Nitrite Negative (Negative); Urine Protein 1+(30 mg/dL) (Negative); Urine Specific Gravity 1.011 (1.002-1.030); Urine Urobilinogen Negative (Negative)
[2021-01-09 10:25] LABS: Urine Bacteria Absent (Absent); Urine Red Blood Cell 3+(>10/hpf) (Absent); Urine Squamous Epithelial Cell Present (Absent); Urine White Blood Cell 3+(>20/hpf) (Absent)
[2021-01-09] MEDS ORDERED: cefTRIAXone 2 GM ADDV.VIAL 2 GM in NS 0.9% 100 ml BAG 100 ML IVPB ONE (10:51)
[2021-01-09] MEDS ORDERED: Magnesium Hydroxide LIQ 30 ML UDC PO PRN (11:13)
[2021-01-09] MEDS ORDERED: Ondansetron 4 mg VIAL 2 MG/ML 2 ml VIAL IV PRN (11:13)
[2021-01-09] MEDS ORDERED: Iohexol 180 (CONTRAST) 10 ML SDV IV ONE (11:33)
[2021-01-09] MEDS ORDERED: Buffered Lidocaine 1% SYRIN 1 ml INTRADERM ONE (11:39)
[2021-01-09] MEDS ORDERED: fentaNYL 100 mcg/2 ml 50 MCG/ML VIAL ONE (12:19)
[2021-01-09] MEDS ORDERED: Midazolam 2 mg/2 ml VIAL 1 mg/ml 2 ml VIAL (2 mg) ONE (12:19)
[2021-01-09] MEDS ORDERED: Lidocaine 2% PF 5 ML VIAL ONE (12:20)
[2021-01-09] MEDS ORDERED: Succinylcholine 200 mg VIAL 20 mg/ml 10 ml VIAL (200 mg) ONE (12:20)
[2021-01-09] MEDS ORDERED: Propofol 10 MG/ML 20 ML BTL ONE ×2 (12:20→12:52)
[2021-01-09] MEDS ORDERED: Ondansetron 4 mg VIAL 2 MG/ML 2 ml VIAL ONE (12:49)
[2021-01-09] MEDS ORDERED: HYDROmorphone 1 MG/1 ML SYRINGE ONE (12:49)
[2021-01-09] MEDS ORDERED: Dexamethasone IV 4 MG/ML VIAL 1 ml VIAL ONE (12:49)
[2021-01-09] MEDS ORDERED: Prochlorperazine 5 mg/ml 2 ml VIAL (10 mg) IV PRN ×2 (13:10→15:17)
[2021-01-09] MEDS ORDERED: diPHENhydraMINE IV 50 MG/ML 1 ml VIAL (BENADRYL) IV PRN ×2 (13:10→15:17)
[2021-01-09] MEDS ORDERED: HYDROmorphone 1 MG/1 ML SYRINGE IV PRN ×2 (13:10→15:17)
[2021-01-09] MEDS ORDERED: Naloxone 0.4 mg VIAL 0.4 mg/ml 1 ml VIAL IV PRN ×2 (13:10→15:17)
[2021-01-09] MEDS: NS 0.9% 1000 ml BAG 1,000 ML IV SCH (16:38)
[2021-01-09] MEDS ORDERED: Benzocaine/Menthol LOZ PO PRN (20:01)
[2021-01-10] MEDS: NS 0.9% 1000 ml BAG 1,000 ML IV SCH (02:42)
[2021-01-10 08:01] LABS: Calcium 8.2 mg/dL (8.6-10.3); Potassium 3.8 mmol/L (3.5-5.0)
[2021-01-10 08:07] LABS: BUN/Creatinine Ratio 9.6 (8-20); EGFR African American 109.8 (>60); EGFR Non-African American 90.7 (>60); Hematocrit 36 % (35-47); Hemoglobin 11.4 g/dL (12.0-16.0); Mean Corpuscular HGB Conc 32 g/dL (31-36); Mean Corpuscular Hemoglobin 29 pg (27-31); Mean Corpuscular Volume 93 fL (80-97); Mean Platelet Volume 8.5 fL (7.4-10.4); Platelet Count 132 10^3/uL (150-450); Red Blood Count 3.89 10^6 /uL (3.70-4.87); Red Cell Distribution Width 15 % (10-15); White Blood Count 10.3 10^3/uL (3.5-10.8)
[2021-01-10 08:50] LABS: ABS Lymphocytes 0.9 10^3/ul (1.0-4.8); ABS Monocytes 0.5 10^3/ul (0-0.8); ABS Neutrophils 8.8 10^3/ul (1.5-7.7); Eosinophil % 0.3 %; Lymphocyte % 8.6 %; Nucleated Red Blood Cells % 0.2
[2021-01-10] MEDS ORDERED: cefTRIAXone 1 gm/50 mL NS BAG 1 GM/50 ML BAG IVPB SCH (09:00)
[2021-01-10] MEDS ORDERED: Senna TAB 8.6 mg TAB PO SCH (09:00)
[2021-01-10] MEDS ORDERED: Polyethylene Glycol 3350 17 GM PACKET PO SCH (09:00)
[2021-01-10 11:02] VITALS: BP 107/66
== END 2021-01-10 14:04 | disposition home or self-care (01) ==
LOC: SSU 08:02 → ED 08:02
PROVIDERS: ADMIT Hospitalist; ATTEND Hospitalist